=== PATIENT | female | born 1960 | race Caucasian/White ===

== ENCOUNTER 2021-08-02 15:46 | Emergency (ER) | payer OTHER ==
[~2021-08-02] VITALS: Ht 167.6 cm; Wt 56.2 kg
[2021-08-02 19:35] LABS: ABSOLUTE NEUTROPHILS 3.3 thou/uL (1.4-8.2); BASOPHILS 0.6 % (0.0-2.0); HEMATOCRIT 39.4 % (37.0-47.0); HEMOGLOBIN 13.1 gm/dL (12.0-15.0); LYMPHOCYTES 23.5 % (24.0-44.0); MCH 27.4 pg (26.0-34.0); MCHC 33.3 g/dL (28.0-37.0); MCV 82.4 fL (80.0-100.0); MONOCYTES 7.9 % (1.0-8.0); PLATELET COUNT 190 thou/uL (150-400); RBC 4.79 mil/uL (4.20-5.00); RDW 14.7 % (10.5-14.5); WBC 4.9 thou/uL (4.0-11.0)
[2021-08-02 19:57] LABS: CALCIUM 8.8 mg/dL (8.5-10.1); POTASSIUM 4.4 mmol/L (3.5-5.1)
[2021-08-02 20:04] LABS: APTT 30.7 Seconds (24.5-32.8); D-DIMER 0.36 ug/mLFEU (0.19-0.50); INR 0.92; PROTIME 10.1 Seconds (10.5-12.1)
[2021-08-02 20:08] LABS: ALBUMIN 2.9 g/dL (3.4-5.0); MAGNESIUM 2.1 mg/dL (1.8-2.4); TOTAL BILIRUBIN 0.3 mg/dL (0.2-1.0); TOTAL PROTEIN 7.3 g/dL (6.4-8.2)
[2021-08-02] MEDS ORDERED: ZPAK PO (21:06)
[2021-08-02] MEDS ORDERED: PREDNISONE 20 M20 MG PO (21:06)
[2021-08-02 21:30] VITALS: BP 99/69
== END 2021-08-02 21:37 | disposition home or self-care (01) ==
LOC: ER 15:46
PROVIDERS: Nurse Practitioner
DX: U07.1 COVID-19 (principal); J12.82 Pneumonia due to coronavirus disease 2019